=== PATIENT | male | born 1955 | race Caucasian/White ===

== ENCOUNTER 2022-02-07 16:27 | Emergency (ER) | payer OTHER ==
[2022-02-07] MEDS ORDERED: Cephalexin 500 MG Cap PO STA (17:41)
== END 2022-02-07 18:18 | disposition home or self-care (01) ==
LOC: FB.ED 16:27
DX: S81.011A Laceration without foreign body, right knee, initial encounter (principal); E78.00 Pure hypercholesterolemia, unspecified; I10 Essential (primary) hypertension; Z88.0 Allergy status to penicillin; Z88.1 Allergy status to other antibiotic agents; Z79.899 Other long term (current) drug therapy; Z79.82 Long term (current) use of aspirin; W27.0XXA Contact with workbench tool, initial encounter
CPT/HCPCS: 12004; 73562-RT; 99283-25; A9270-GY